=== PATIENT | female | born 1980 | race Caucasian/White ===

== ENCOUNTER 2021-05-26 09:56 | Outpatient (CLI) | payer BC, SELFPAY | END 2021-05-26 09:57 | disposition home or self-care (01) | LOC: ANHSURGERY 10:00 | PROVIDERS: PCP Emergency Medicine; Visit Provider Urology | DX: N39.3 Stress incontinence (female) (male) (principal); Z01.818 Encounter for other preprocedural examination | CPT/HCPCS: 87086 ==

== ENCOUNTER 2021-06-01 00:52 | Day surgery (SDC) | payer BC, SELFPAY ==
[2021-05-21 14:33] VITALS: BMI 23.3
--- NOTE | 2021-05-21 14:38 | SUR.PREOP ---
Report to the Outpatient Waiting Room, entrance under the green pavilion located off [facility], at time _0600 on date _06/01/21 . OR Time: __0800. - You and your visitor will be asked a series of questions to screen for COVID 19 for your protection. - A mask is required within the hospital. - Only one visitor is allowed at this time. Patient visitors will be guided where to wait when not with patient. Preoperative COVID Testing Requirements: No COVID Test needed if: (proof is required; if not received patient will have Rapid Test prior to entry) - Patient has received COVID Vaccine at least 14 days prior to procedure date or - Patient has positive COVID test result within last 90 days of surgery date. COVID Test needed if above criteria is not met If not COVID vaccinated a COVID test must be conducted within 72 hours of surgery and patient is asked to isolate self from time of testing until procedure. You will go to the [facility] for your COVID testing. The [facility] is located at the corner of [address] [facility]. You will only be called if COVID results are positive and your surgeon may reschedule your elective surgery date. Patients may have clear liquids (water, carbonated beverages, clear teas, apple juice) until 3 hours prior to surgery with a maximum of 20 ounces. - No food from midnight until time of surgery - Infants may have breast milk until 4 hours before surgery, infant formula 6 hours prior to surgery. - Children will be allowed to drink immediately following surgery. If applicable, please bring a bottle or sippy cup to assist with drinking. Juice, water, soda, and popsicles are readily available. For infants on formula, please bring formula the day of surgery. Pacifiers are allowed. Take the following medications with a SIP of water the morning of surgery: n/a Medications to discontinue per physician n/a Date to take last dose____n/a Please no make-up, nail martiniquais, hairspray, perfume, deodorant, or body powder the day of surgery. No jewelry (including any body piercings) or valuables the day of surgery, leave them at home. Please take a shower or bath the night before, or the morning of, surgery with an antibacterial soap. Wear comfortable, loose fitting clothing. Children are encouraged to wear pajamas. - Jewelry must be removed prior to entering the operating room. Rings and piercings that are not removed may be cut off. - The hospital will not accept responsibility for valuables. - Please leave all valuables, including medications, at home the day of surgery. If you are going home after surgery, a licensed telephone directory distributor driver must drive you home. - NO public transportation without another adult. - We recommend that an adult stay with you for 24 hours following discharge. - We also recommend that you do not drive, make important decision, drink alcoholic beverages, or take any drugs that were not prescribed by your health care provider for at least 24 hours after your discharge time. For Pediatric surgeries, we recommend two adults accompany the child home (only one inside the building at this time). Follow any additional instructions given to you from your surgeon. Telephone instructions given to __dustin butler Patient advised to call surgeon office or pre surgery nurse liaison [phone] if any additional questions.
--- NOTE | 2021-05-29 14:26 | PM.IMHP ---
H&P: HPI History of Present Illness Date/Time: 05/29/21 14:26 exposure of mesh in right sulcus. GINGER due to ISD Chief Complaint: ISD/vag mesh exposure Review of Systems Review of Systems: All systems reviewed & are unremarkable except as noted in HPI and below PMFSH Past Medical History Medical History Left radial head fracture Surgical History Surgical History H/O foot surgery History of knee surgery Social History Social History Smoking status: Never smoker Alcohol intake: current Drinks per week: 2 Alcohol use details: 3-5 drinks per month Substance use: never Gender identity (if verbalized by the patient): Female Spiritual care concerns: No Meds Home Medications and Allergies Home Medications Medication Instructions Recorded Confirmed Type oxybutynin chloride 10 mg PO DAILY 05/21/21 05/21/21 History Allergies Allergy/AdvReac Type Severity Reaction Status Date / Time Penicillins Allergy Intermediate HIVES Verified 05/21/21 14:17 sulfamethoxazole Allergy Intermediate Hives Verified 05/21/21 14:18 [From Bactrim] trimethoprim [From Bactrim] Allergy Intermediate Hives Verified 05/21/21 14:18 Exam Narrative: This NAD Mesh notes in right sulcus Assessment and Plan Assessment and plan (1) Exposure of vaginal mesh through vaginal wall: Code(s): T83.721A - Exposure of implanted vaginal mesh into vagina, initial encounter Status: Acute Assessment and Plan: excision of mesh exposure (2) Intrinsic sphincter deficiency (ISD): Code(s): N36.42 - Intrinsic sphincter deficiency (ISD) Status: Acute Assessment and Plan: bulking agent
[2021-06-01] VITALS (12 sets, daily range): BP systolic 103–120; BP diastolic 63–80; PULSE 66–88; RESP 11–18; TEMP 36.2–36.3; O2SAT 100
[2021-06-01] MEDS: LACTATED RINGERS 1,000 ML 30 ML IV CONT ×2 (06:55→09:21)
--- NOTE | 2021-06-01 07:11 | WPDHPUPDATE1 ---
History and Physical Update Update Date/Time: 06/01/21 07:11 History and Physical has been reviewed, including an updated exam of the patient. There are NO changes in the patient's condition. Risks, benefits, and alternatives have been discussed and questions answered. Patient agrees to proceed with procedure.
--- NOTE | 2021-06-01 07:29 | P.PNAN_ITS ---
Anes - Initial Pre Proc Eval Procedure: Operation Date: 06/01/21 08:00 Proposed Procedures p Cystoscopy, Bulking Agent, Excision of Exposed Vaginal Mesh - Bowen Ceron MD Date/Time: 06/01/21 07:29 Surgeon: Bowen Ceron MD Pre Op Diagnosis: Exposure of Vag Mesh, Stress Incontience Patient Data Age: 40 Gender: F Height: 1.65 m Weight: 63.63 kg Allergies Allergy/AdvReac Type Severity Reaction Status Date / Time Penicillins Allergy Intermediate HIVES Verified 06/01/21 06:46 sulfamethoxazole Allergy Intermediate Hives Verified 06/01/21 06:46 [From Bactrim] trimethoprim [From Bactrim] Allergy Intermediate Hives Verified 06/01/21 06:46 Home Medications Medication Instructions Recorded Confirmed Type oxybutynin chloride 10 mg PO DAILY 05/21/21 06/01/21 History Patient hx anesthesia problems: none Family hx anesthesia problems: none Results Review: All pre-operative results and documents have been reviewed as part of the pre-operative evaluation. [facility] Past Medical History Medical History Left radial head fracture Surgical History Surgical History H/O foot surgery History of knee surgery Social History Social History Smoking status: Never smoker Alcohol intake: current Drinks per week: 2 Alcohol use details: 3-5 drinks per month Substance use: never Living arrangements: with family Gender identity (if verbalized by the patient): Female Spiritual care concerns: No Anes - Eval Final PreProcedure Day of Procedure 06/01/21 07:29 Patient weight: normal Heart: regular rate and rhythm Lungs: clear to auscultation Airway: Mallampati scale class II Neurological: alert and oriented Last oral intake: >/= 8 hours ASA classification: I Emergent: no Anesthetic plan: proceed Anesthesia type and monitoring: general LMA and standard monitoring Results Review: All pre-operative results and documents have been reviewed as part of the pre-operative evaluation. Informed Consent: The patient's anesthetic plan and its attendant risks and benefits were discussed with the patient/family/POA. Questions were solicited and answers provided to the satisfaction of the patient/family/POA.
[2021-06-01] MEDS: ceFAZolin 2 GM/D5W 50 ML 2 GM/50 ML BAG IVPB (07:50)
--- NOTE | 2021-06-01 08:29 | SUR.OPER ---
ebl=10ml
[2021-06-01] MEDS: fentaNYL CITRATE INJ (*CRX) 100 MCG/2 ML VIAL 25 MCG IV PUSH ×2 (08:55→09:04)
[2021-06-01] MEDS: ONDANSETRON INJ 4 MG/2 ML VIAL IV PUSH (10:11)
--- NOTE | 2021-06-01 10:29 | P.OP_ITS ---
Procedure Note - Detailed Date of Procedure 06/01/21 Pre-op Diagnosis Exposure of Vag Mesh, intrinsic sphincter deficiency Post-op Diagnosis same Procedure Performed Excision of exposed vaginal mesh Cystoscopy suburethral injection of implant material Surgeon Bowen Ceron MD Anesthesia general Indications This is a woman is undergoing a sling procedure. She has mesh exposure in the right sulcus. Is relatively asymptomatic. She does have persistent stress incontinence due to intrinsic sphincter deficiency. We discussed options. We discussed a repeat synthetic sling. We discussed fascial sling. We discussed bulking agent. Will undergo a combined excision of exposed mesh and bulking agent. She understands the risks of bleeding, infection, damage to surrounding organs, damage to urinary tract, lack of cure of stress incontinence, recurrent stress incontinence, recurrent mesh exposure, obstructive voiding requiring catheterization. She agrees to proceed. Findings The mesh exposure and right sulcus. fragile tissues. Description of Procedure She has correctly identified. Informed consent obtained. She from the operating room. She was given general anesthesia. She was prepped and draped in a sterile fashion. Time-out performed. She was given appropriate perioperative antibiotics. I placed a [place] retractor. I placed Jose catheter. She had area of mesh exposure in the right sulcus. This was grasped. It was dissected out to the sulcus. I removed a segment of exposed mesh. Palpation the sulcus revealed no other exposed mesh. I closed the incision with interrupted 2 Vicryl suture. Of note the tissues were quite friable in this area. She also had deficient tissue underneath the urethra. She also had a quite patulous urethral meatus. I then performed cystoscopy. Ureteral orifices normal. There is no artifact in the bladder urethra. No sign of any urethral or bladder injury. I injected the bulking agent circumferentially around the urethra forming 4 pillows. There was excellent bulking effect. Her bladder was left partially full. She was awakened and transferred to PACU in stable condition. Estimated Blood Loss 10 Drains No Packing No Pathology yes (Exposed vaginal mesh) Complications No immediate complications Condition stable Disposition PACU
[2021-06-01] MEDS: SCOPOLAMINE 1.5 MG PATCH TRANSDERM (11:20)
[2021-06-01] MEDS: diphenhydrAMINE HCl INJ 50 MG/ML VIAL 25 MG IV PUSH (11:20)
--- NOTE | 2021-06-01 11:30 | SUR.PHASEII ---
BLADDER SCAN SHOWED 371 IN BLADDER. CATHERTER INSERTED. PT TO TAKE OUT TOMORROW ON HER OWN. EDUCATION PROVIDED.
== END 2021-06-01 11:35 | disposition home or self-care (01) ==
PROVIDERS: PCP Emergency Medicine; Visit Provider Urology
PROC: 3E0K8GC Introduction of Other Therapeutic Substance into Genitourinary Tract, Via Natural or Artificial Opening Endoscopic (ICD-10-PCS; CPT 51715; principal; 2021-06-01 08:00)
DX: T83.721A Exposure of implanted vaginal mesh into vagina, initial encounter (principal); Y83.8 Other surgical procedures as the cause of abnormal reaction of the patient, or of later complication, without mention of misadventure at the time of the procedure; N36.42 Intrinsic sphincter deficiency (ISD)
CPT/HCPCS: 51715; 57295; 88300; A9270; J0690; J1100; J1200; J2250; J2270; J2405; J2704; J3010; J7120; L8606

== ENCOUNTER 2023-08-15 09:47 | Outpatient (CLI) | payer BC, SELFPAY ==
--- NOTE | ~2023-08-15 | MM_ITS ---
EXAMINATION: MM screening bijal BI w lucinda HISTORY: Screening TECHNIQUE: Craniocaudal and mediolateral oblique 3-D tomosynthesis images were obtained and synthetic 2-D images were generated. CAD analysis was submitted and interpreted. COMPARISON: No prior studies for comparison. BREAST PARENCHYMAL COMPOSITION: Dense: The breasts are extremely dense, which lowers the sensitivity of mammography. FINDINGS: There is no evidence of suspicious mass, calcification, or architectural distortion to sugg est malignancy in either breast. There has been no suspicious interval change. IMPRESSION: 1. No mammographic evidence of malignancy. 2. Recommend routine screening mammography in one year. BI-RADS Category 1: Negative Reviewed, dictated and finalized at location A.
== END 2023-08-15 09:48 ==
PROVIDERS: PCP Obstetrics & Gynecology; Visit Provider Obstetrics & Gynecology
DX: Z12.31 Encounter for screening mammogram for malignant neoplasm of breast (principal)
CPT/HCPCS: 77063; 77067